=== PATIENT | male | born 1980 | race Caucasian/White ===

== ENCOUNTER 2024-06-03 11:17 | Emergency (ER) | payer OTHER, MEDICAID ==
[~2024-06-03] VITALS: Ht 170.2 cm; Wt 98.0 kg
[~2024-06-03 11:17] MED LIST: IBUP-1456 PO
[2024-06-03] MEDS: ALBUTEROL SULF 2.5 MG/0.5ML(0.5%) NEB SOLN NEB ONE (11:57)
[2024-06-03] MEDS: IPRATROPIUM BROM 0.5 MG/2.5ML INH SOL NEB ONE (11:57)
[2024-06-03] MEDS: methylPREDNISolone SOD SUCC 125 MG/2 ML VL IV ONE (12:32)
[2024-06-03 14:44] VITALS: BP 112/87; PULSE 100; RESP 18; TEMP 98; O2SAT 95
== END 2024-06-03 14:48 | disposition home or self-care (01) ==
LOC: ER 11:17
DX: T59.891A Toxic effect of other specified gases, fumes and vapors, accidental (unintentional), initial encounter (principal); J45.909 Unspecified asthma, uncomplicated; F15.90 Other stimulant use, unspecified, uncomplicated; Z87.891 Personal history of nicotine dependence; Y92.89 Other specified places as the place of occurrence of the external cause
CPT/HCPCS: 71046; 94640; 96374; 99283; J2919